=== PATIENT | male | born 1985 | race Caucasian/White ===

== ENCOUNTER → 2017-03-06 | Outpatient (REF) ==
[~2017-03-06] MED LIST: AZIT250T81 PO; DIPH25CA79 PO
--- NOTE | 2017-03-06 13:39 | Diagnostic Imaging Report ---
INDICATION: Preemployment screening. DISCUSSION: Two views of the chest were obtained, comparison 02/20/2016. No adverse interval change. The heart and lungs remain normal. No osseous abnormality. No significant degenerative disease within the thoracic spine. IMPRESSION: 1. Normal chest. Dictated by: Dictated on workstation # [id number]
--- NOTE | 2017-03-09 11:26 | Diagnostic Imaging Report ---
INDICATION: Preemployment screening. DISCUSSION: Three views lumbosacral spine were obtained, no comparison. 5 lumbar type vertebral bodies are present. Intervertebral disc spaces are well-maintained. No significant facet arthropathy identified. Overall alignment is anatomic. The SI joints are normal. Paraspinal soft tissues are unremarkable. IMPRESSION: 1. Negative lumbar spine. Dictated by: Dictated on workstation # [id number]
== END ==
LOC: RAD 10:29
PROVIDERS: ATTEND Nurse Practitioner Family
DX: Z02.1 Encounter for pre-employment examination (principal)
CPT/HCPCS: 71020; 72100